=== PATIENT | male | born 1965 | race Caucasian/White ===

== ENCOUNTER 2019-08-01 13:48 | Emergency (ER) | payer OTHER ==
[2019-08-01 14:04] VITALS: BP 141/91
[2019-08-01] MEDS ORDERED: MELOXICAM 7.5 MG TABLET PO STA (15:10)
[2019-08-01] MEDS ORDERED: CYCLOBENZAPRINE 10 MG TABLET PO STA (15:10)
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
== END 2019-08-01 15:30 | disposition home or self-care (01) ==
LOC: ED 13:48
DX: S39.012A Strain of muscle, fascia and tendon of lower back, initial encounter (principal); V59.49XA Driver of pick-up truck or van injured in collision with other motor vehicles in traffic accident, initial encounter; Y92.410 Unspecified street and highway as the place of occurrence of the external cause
CPT/HCPCS: 99282; 99284; A9270

== ENCOUNTER 2023-05-05 15:14 | Emergency (ER) | payer OTHER ==
[2023-05-05 15:29] VITALS: BP 133/77; O2SAT 95
--- NOTE | 2023-05-05 16:53 | ED Physician Documentation ---
PD HPI ABD PAIN - Stated complaint Stated Complaint: GI - Chief complaint Chief Complaint: Abd Pain - History obtained from History obtained from: Patient - History of Present Illness Timing - onset: How many days ago (few) Timing - duration: Days (few) Timing - details: Gradual onset, Still present (had not had BM for few days. Feeling fullness in abd and feeling of rectal fullness. Has tried mirilax daily and an OTC stool softener/laxative (brown/red colored tablet - ? senna). Not productive. Is on Celebrex and Tizanidine for chest wall strain the past week. No numbness nor weakness in legs.) Quality: Cramping (intermittently) Location: LLQ Radiation: No: Left flank, Right flank Worsened by: No: Moving, Palpation Associated symptoms: Constipation. No: Nausea, Vomiting, Melena, Dysuria Recently seen: Clinic (for muscle pains) Review of Systems Constitutional: denies: Fever, Chills Cardiac: denies: Palpitations Respiratory: denies: Dyspnea, Cough GI: reports: Constipation. denies: Abdominal Swelling, Nausea, Vomiting, Diarrhea, Bloody / black stool : denies: Dysuria PD PAST MEDICAL HISTORY - Past Surgical History Past Surgical History: No - Present Medications Home Medications: Ambulatory Orders Medication Instructions Recorded Confirmed Cyclobenzaprine [Flexeril] 10 mg PO TID PRN #20 tablet 08/01/19 Meloxicam [Mobic] 15 mg PO DAILY PRN #20 tablet 08/01/19 - Allergies Allergies/Adverse Reactions: Allergies Allergy/AdvReac Type Severity Reaction Status Date / Time No Known Drug Allergies Allergy Verified 05/05/23 15:18 - Social History Does the pt have substance abuse?: No - Immunizations Immunizations are current?: Yes PD ED PE NORMAL - Vitals Vital signs reviewed: Yes - General General: Alert and oriented X 3, No acute distress, Well developed/nourished - Cardiac Cardiac: RRR, No murmur - Respiratory Respiratory: Clear bilaterally - Abdomen Abdomen: Normal bowel sounds, Soft, Non distended, No organomegaly, Other (mild tender without guarding nor percussion tneder left abdomen.) - Male Male : Deferred - Rectal Rectal: Other (rectal with minimal stool in vault. Brown colored. No impaction. Normal rectal tone and sensation. ) - Back Back: No CVA TTP Results - Vitals Vitals: Vital Signs - 24 hr 05/05/23 15:18 Temperature 36.5 C Heart Rate 88 Respiratory 16 Rate Blood Pressure 133/77 H O2 Saturation 95 Oxygen O2 Source Room air PD Medical Decision Making - ED course Complexity details: considered differential (had not had BM for few days and feels constiapted/distended to himself. Exam does not feel distended. Minimal tender left abdomen. No guarding nor percussion tender. Can augment stool softeners/etc. I do not feel he has acute abd process for testing at this point. ), d/w patient Departure - Departure Disposition: Home, Self Care Clinical Impression: Constipation Condition: Stable Record reviewed to determine appropriate education?: Yes Instructions: ED Constipation Comments: We did give an extra dose of the stool softener called lactulose. You can use the bisacodyl suppository when you get home. At that point stay well-hydrated. I would suggest using the MiraLAX you have at home dose every hour or so through this evening until you have some stool output. If not having significant output, you can resume that in the morning. Typically this will get your stool moving reasonable enough. Cut back to the MiraLAX just twice daily once you start having some loose stools and continue that for the next week. You can continue the stool softener you also have at home that was [id number]. Recheck if not improved well over the next day or 2 and return if worsening symptoms such as abdominal cramping/pain, vomiting, blood in the stool or other concerns. Forms: PCP List Discharge Date/Time: 05/05/23 17:25
[2023-05-05] MEDS ORDERED: BISACODYL 10 MG SUPP PR STA (17:16)
[2023-05-05] MEDS ORDERED: LACTULOSE 10 GM /15 ML UDC PO STA (17:16)
== END 2023-05-05 17:25 | disposition home or self-care (01) ==
LOC: ED 15:14
DX: K59.00 Constipation, unspecified (principal)
CPT/HCPCS: 99282; 99283; A9270

== ENCOUNTER 2023-07-22 06:45 | Outpatient (CLI) | payer OTHER ==
--- NOTE | 2023-07-22 16:00 | Ultrasound Report ---
PROCEDURE: Retroperitoneal INDICATIONS: URINARY RETNETION TECHNIQUE: Real-time scanning was performed of the retroperitoneal organs, with image documentation. COMPARISON: None. FINDINGS: Kidneys: Kidneys are normal in size. Right kidney measures 10.7 cm long; left kidney measures 11.6 cm long. Right renal cortical thickness is 1.8 cm; left renal cortical thickness is 1.5 cm. Mild bean ateral hydronephrosis persisting post void. Simple cyst on the left is present measuring 3.2 x 1.8 x 2.6 cm. Bladder: Pre-void bladder volume is 155 mL. Post-void residual is 20 mL. Lateral wall is thickened. Pre-void images demonstrate no intraluminal masses or stones. On pre-void images, bilateral uretera l jets are noted with color Doppler interrogation. (Of note, ureteral jets may not be detectable in up to 25% of cases due to insufficient differences in specific gravity between ureteral and bladder u rine). Miscellaneous: No free abdominal fluid. IMPRESSION: Bilateral hydronephrosis persisting on post void. Markedly thickened bladder wall. While this could be secondary to incomplete distention, trabeculatio ns are present which may be sales representative cash registers of chronic urinary retention or potentially infection/infl ammation. Reviewed by: Nataly Parsons MD on 07/22/2023 3:59 PM PDT Approved by: Nataly Parsons MD on 07/22/2023 3:59 PM PDT Station ID: [id number]
== END 2023-07-22 06:46 | disposition home or self-care (01) ==
LOC: DI 06:45
PROVIDERS: ATTEND Urology
DX: N13.30 Unspecified hydronephrosis (principal); N32.89 Other specified disorders of bladder; R33.9 Retention of urine, unspecified

== ENCOUNTER 2023-09-25 06:59 | Outpatient (CLI) | payer OTHER ==
--- NOTE | 2023-09-25 11:20 | Ultrasound Report ---
PROCEDURE: Renal (Retroperitoneal) INDICATIONS: HISTORY OF HYDRONEPHROSIS TECHNIQUE: Real-time scanning was performed of the retroperitoneal organs, with image documentation. COMPARISON: 07/22/2023 FINDINGS: Kidneys: Kidneys are normal in size. Right kidney measures 10.7 cm long; left kidney measures 11.2 cm long. Right renal cortical thickness is 1.8 cm; left renal cortical thickness is 1.3 cm. Small a nechoic exophytic cortical cyst measuring 2.8 cm arises from the left lower pole. Mild, mainly lower pole bilateral hydronephrosis without significant change since the previous exam. No solid masses, or nephrolithiasis. Bladder: Pre-void bladder volume is 492 mL. Post-void residual is 4 mL. Pre-void images demonstrat e no intraluminal masses or stones. On pre-void images, bilateral ureteral jets are noted with color Doppler interrogation. (Of note, ureteral jets may not be detectable in up to 25% of cases due to i nsufficient differences in specific gravity between ureteral and bladder urine). Miscellaneous: No free abdominal fluid. The visible portion of the prostate gland measures 4.0 x 4. 0 x 5.8 cm. IMPRESSION: 1. Stable, mild lower pole bilateral hydronephrosis. This may be a normal variant such as duplication with minor lower pole reflux, simple bilateral vesicoureteral reflux,, less likely distal obstructio n. 2. The prostate gland is not significantly enlarged. 3. There is been interval resolution of bladder wall thickening since the prior exam. Reviewed by: Monika Scott MD on 09/25/2023 11:19 AM PST Approved by: Monika Scott MD on 09/25/2023 11:19 AM PST Station ID: [id number]
== END 2023-09-25 07:00 | disposition home or self-care (01) ==
LOC: DI 06:59
PROVIDERS: ATTEND Urology
DX: N13.30 Unspecified hydronephrosis (principal)

== ENCOUNTER 2024-04-22 17:03 | Outpatient (CLI) | payer OTHER ==
--- NOTE | 2024-04-23 15:31 | Ultrasound Report ---
PROCEDURE: Renal (Retroperitoneal) INDICATIONS: HYDRONEPHROSIS TECHNIQUE: Real-time scanning was performed of the retroperitoneal organs, with image documentation. COMPARISON: Ultrasound retroperitoneum 09/25/2023. FINDINGS: Kidneys: Kidneys are normal in size. Right kidney measures 11.8 cm long; left kidney measures 11.04 cm long. Right renal cortical thickness is 1.56 cm; left renal cortical thickness is 1.62 cm. Bilat eral mild hydronephrosis noted. No solid masses, or nephrolithiasis. Note is made of a 2.6 cm cystic structure in the lower pole of left kidney appearing anechoic, posterior cystic enhancement, no inte rnal echogenicity,; likely a simple cyst. Bladder: Pre-void bladder volume is 246 mL. Post-void residual is 1 mL. Pre-void images demonstrat e no intraluminal masses or stones. On pre-void images, bilateral ureteral jets are noted with color Doppler interrogation. (Of note, ureteral jets may not be detectable in up to 25% of cases due to i nsufficient differences in specific gravity between ureteral and bladder urine). Miscellaneous: No free abdominal fluid. IMPRESSION: Bilateral mild hydronephrosis similar to prior study Reviewed by: Gen Mora MD on 04/23/2024 3:29 PM PDT Approved by: Gen Mora MD on 04/23/2024 3:29 PM PDT Station ID: [id number]
== END 2024-04-22 17:04 | disposition home or self-care (01) ==
LOC: DI 17:03
PROVIDERS: ATTEND Physician Assistant Medical
DX: R33.9 Retention of urine, unspecified (principal); N31.9 Neuromuscular dysfunction of bladder, unspecified; N13.30 Unspecified hydronephrosis